=== PATIENT | female | born 1990 | race African-American/Black ===

== ENCOUNTER 2024-07-28 10:33 | Emergency (ER) | payer OTHER ==
[~2024-07-28] VITALS: Ht 160 cm; Wt 108.9 kg
[2024-07-28 11:30] VITALS: PULSE 72; RESP 16; TEMP 98.2; O2SAT 100
[2024-07-28] MEDS: KETOROLAC TROMETHAMINE 60 MG/2 ML VIAL IM ONE (12:52)
[2024-07-28] MEDS ORDERED: HYDROCODON-ACE1 EA11 PO (13:30)
== END 2024-07-28 14:42 | disposition home or self-care (01) ==
LOC: ER 11:24
DX: S82.292A Other fracture of shaft of left tibia, initial encounter for closed fracture (principal); X58.XXXA Exposure to other specified factors, initial encounter; Y92.89 Other specified places as the place of occurrence of the external cause
CPT/HCPCS: 29515; 73610; 99284; J1885